=== PATIENT | female | born 1980 | race Caucasian/White ===

== ENCOUNTER 2016-07-15 18:24 | Emergency (ER) | payer OTHER ==
[2016-07-15] MEDS ORDERED: MORPHINE SULFATE 8 MG/ML INJ ONE (18:31)
[2016-07-15] MEDS ORDERED: ONDANSETRON HCL 4 MG/2 ML VIAL ONE (18:32)
[2016-07-15] MEDS ORDERED: PROPOFOL 200 MG/20 ML AMP ONE (18:34)
[2016-07-15 18:52] LABS: AUTOMATED NEUTROPHIL # 6.1 TH/MM3 (1.8-7.7); BASOPHIL # 0.1 TH/MM3 (0-0.2); BASOPHIL % 0.6 % (0.0-2.0); EOSINOPHIL # 0.2 TH/MM3 (0-0.4); HEMATOCRIT 37.2 % (35.0-46.0); HEMO FLAGS DIFF FINAL; LYMPH % 36.1 % (9.0-44.0); LYMPHOCYTE # 3.9 TH/MM3 (1.0-4.8); MEAN CELL VOLUME 77.4 FL (80.0-100.0); MEAN CORPUSCULAR HEMOGLOBIN 25.7 PG (27.0-34.0); MEAN CORPUSCULAR HGB CONC 33.2 % (32.0-36.0); MONO % 4.9 % (0.0-8.0); NEUT % 56.4 % (16.0-70.0); PLATELET COUNT 393 TH/MM3 (150-450); RED BLOOD COUNT 4.81 MIL/MM3 (4.00-5.30); RED CELL DISTRIBUTION WIDTH 14.5 % (11.6-17.2); WHITE BLOOD COUNT 10.7 TH/MM3 (4.0-11.0)
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
[2016-07-15 19:00] VITALS: BP 136/77; PULSE 107; RESP 16; O2SAT 100
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
[2016-07-15 19:02] LABS: APTT (PATIENT) 23.3 SEC (24.3-30.1); PROTHROMBIN TIME - PATIENT 10.6 SEC (9.8-11.6)
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
[2016-07-15] MEDS: TETANUS/DIPHTHERIA TOXOID ADULT 0.5 ML VIAL IM ONE ×2 (19:15→19:20)
[2016-07-15 19:30] VITALS: O2SAT 97
[2016-07-15 21:00] VITALS: BP 127/70; PULSE 98; RESP 17; O2SAT 100
--- NOTE | 2016-07-15 21:12 | PD ---
Data Data Last Documented VS Vital Signs Date Time Temp Pulse Resp B/P Pulse Ox O2 Delivery O2 Flow Rate FiO2 07/15/16 23:00 91 15 122/68 100 Room Air Orders Morphine Inj (Morphine Inj) (07/15/16 18:31) Ondansetron Inj (Zofran Inj) (07/15/16 18:32) I-Stat Profile (07/15/16 18:28) I-Stat Creatinine (07/15/16 18:28) Complete Blood Count With Diff (07/15/16 18:28) Prothrombin Time / Inr (Pt) (07/15/16 18:28) Act Partial Throm Time (Ptt) (07/15/16 18:28) Type And Screen (07/15/16 18:28) Chest, Single Ap (07/15/16 18:28) Pelvis, Ap Only (Routine) (07/15/16 18:28) Ct Brain W/O Iv Contrast(Rout) (07/15/16 18:28) Ct Cerv Spine W/O Contrast (07/15/16 18:28) Iv Access Insert/Monitor (07/15/16 18:28) Ecg Monitoring (07/15/16 18:28) Oximetry (07/15/16 18:28) Oxygen Administration (07/15/16 18:28) Propofol 200 Mg/20 Ml Inj (Diprivan 200 (07/15/16 18:34) Alcohol (Ethanol) (07/15/16 18:28) Pelvis, Ap Only (Routine) (07/15/16 ) Immobilizer Knee 20 Inch (07/15/16 ) Tetanus/Diphtheria Tox Adult (Tetanus/Di (07/15/16 19:15) Ct Abd/Pel W Iv Contrast(Rout) (07/15/16 21:10) Iohexol 350 Inj (Omnipaque 350 Inj) (07/15/16 23:04) Acetamin-Hydrocod 325-5 Mg ([place] 5-325 (07/16/16 00:00) Labs Laboratory Tests Test 07/15/16 18:28 White Blood Count 10.7 TH/MM3 Red Blood Count 4.81 MIL/MM3 Hemoglobin 12.3 GM/DL Bedside Hemoglobin 13.6 G/DL Hematocrit 37.2 % Bedside Hematocrit 40.0 % Mean Corpuscular Volume 77.4 FL Mean Corpuscular Hemoglobin 25.7 PG Mean Corpuscular Hemoglobin 33.2 % Concent Red Cell Distribution Width 14.5 % Platelet Count 393 TH/MM3 Mean Platelet Volume 8.1 FL Neutrophils (%) (Auto) 56.4 % Lymphocytes (%) (Auto) 36.1 % Monocytes (%) (Auto) 4.9 % Eosinophils (%) (Auto) 2.0 % Basophils (%) (Auto) 0.6 % Neutrophils # (Auto) 6.1 TH/MM3 Lymphocytes # (Auto) 3.9 TH/MM3 Monocytes # (Auto) 0.5 TH/MM3 Eosinophils # (Auto) 0.2 TH/MM3 Basophils # (Auto) 0.1 TH/MM3 CBC Comment DIFF FINAL Differential Comment Prothrombin Time 10.6 SEC Prothromb Time International 1.0 RATIO Ratio Activated Partial 23.3 SEC Thromboplast Time Bedside Sodium 142 MMOL/L Bedside Potassium 4.0 MMOL/L Bedside Chloride 108 MMOL/L Bedside Blood Urea Nitrogen 6 MG/DL Bedside Creatinine 0.7 MG/DL Bedside Glucose 124 MG/DL Ethyl Alcohol Level 253 MG/DL Blood Type A POSITIVE Antibody Screen NEGATIVE [facility] Medical Record Reviewed: Yes Supervised Visit with MIKA: No Interpretation(s) Last Impressions Abdomen/Pelvis CT 07/15/162109 Signed Impressions: Service Date/Time: Friday, July 15, 2016 23:03 - CONCLUSION: 1. Tiny avulsion fracture left lateral acetabulum near the acetabular labrum. 2. Fatty liver and left ovarian cyst. Edyta Ahn MD Pelvis X-Ray 07/15/161827 Signed Impressions: Service Date/Time: Friday, July 15, 2016 18:18 - CONCLUSION: Interim reduction of the left hip dislocation. Small fracture fragment off of the lateral margin of the acetabulum. Leoncio Monreal MD Head CT 07/15/161827 Signed Impressions: Service Date/Time: Friday, July 15, 2016 18:50 - CONCLUSION: No bleed or other acute intracranial abnormality demonstrated. Partly opacified paranasal sinuses and potentially a fractured nose. Please correlate clinically. Leoncio Monreal MD Chest X-Ray 07/15/161827 Signed Impressions: Service Date/Time: Friday, July 15, 2016 18:18 - CONCLUSION: One view trauma chest x-ray within normal limits. Leoncio Monreal MD Cervical Spine CT 07/15/16 1828 Signed Impressions: Service Date/Time: Friday, July 15, 2016 18:50 - CONCLUSION: No fracture or subluxation of the cervical spine. Subcentimeter benign-appearing lucency of the C4 vertebral body incidentally noted. Leoncio Monreal MD Pelvis X-Ray 07/15/16 0000 Signed Impressions: Service Date/Time: Friday, July 15, 2016 18:18 - CONCLUSION: Acute dislocation of the left hip. Leoncio Monreal MD Narrative Course During the course of the patients emergency department visit, the patients history, examination, and differential diagnosis were reviewed with the patient. The patient had IV access obtained and blood work sent for analysis. The patient was placed on a quality assurance monitor chassis with oximetry and blood pressure monitoring. The patient initially came in as a trauma alert was evaluated by the trauma surgeon and Dr. Carbajal. The patient's case was checked out to me at the conclusion of Dr. Carbajal shift. The patient was initially provided morphine for pain, Zofran for nausea. The patient was given propofol for sedation for relocation of her hip, tetanus was updated. The patients laboratory studies were reviewed and remarkable for a white count 10.7, hemoglobin 12.3, platelets 393 with a normal differential. I-STAT is unremarkable, PT 10.6, INR 1.0, PTT 23.3, alcohol level is 253. Radiology studies were reviewed and remarkable a CT scan of the brain that is unremarkable, CT scan of the C-spine shows no acute abnormality. CT scan of the abdomen and pelvis reveals a tiny evulsion fracture off of the acetabulum at the labrum noted. Initial pelvic x-ray on arrival reveals a left hip dislocation. A post reduction pelvis x-ray reveals an interim reduction of the left hip dislocation with a small fracture fragment off of the lateral margin of the acetabulum. A call was placed out to the orthopedic physician on-call, Dr. Daniel. I spoke to him at approximately 11:50 PM. He agreed that the patient could follow-up with him as an outpatient. He recommended that the patient be instructed regarding hip precautions to avoid dislocation. The patient will be discharged home with a knee immobilizer in place. The patient has been up walking around to go to the bathroom repeatedly during her emergency department observation. The patient has a ride home available. The patient will be discharged home with a prescription for Lortab. The patient is resting comfortably and feels better, is alert and in no distress. The patients results and examination findings were discussed with the patient. The repeat examination is unremarkable and benign. The history, exam, diagnostic testing, and current condition do not suggest any significant pathology to warrant further testing, continued ED treatment, admission, or surgical evaluation at this point. The vital signs have been stable. The patient does not have uncontrollable pain, intractable vomiting, or other significant symptoms. The patient's condition is stable and appropriate for discharge. The patient will pursue further outpatient evaluation with a primary care physician or other designated or consulting physician as indicated in the discharge instructions. The patient expressed understanding and was agreeable with this plan. Diagnosis Primary Impression: Hip dislocation, left Qualified Code: S73.005A - Hip dislocation, left, initial encounter Additional Impressions: Alcohol intoxication Qualified Code: F10.920 - Alcohol intoxication, uncomplicated Facial abrasion Qualified Code: S00.81XA - Facial abrasion, initial encounter Nose fracture Qualified Code: S02.2XXA - Closed fracture of nasal bone, initial encounter Referrals: Luis Daniel MD 2 days Primary Care Physician 3 days Patient Instructions: General Instructions, Hip Dislocation (ED), Nasal Fracture (ED) Additional Instruction: Avoid flexing her knee as this can cause recurrent dislocation of the hip. Med/Other Pt SpecificInfo: Prescription(s) given Scripts Hydrocodone-Acetaminophen (Lortab)5-325 Mg Tab1 Tab PO Q6H PRN (PAIN) #12 TAB Ref 0 Prov:Nava Mereidth MD 07/15/16 Disposition: 01 DISCHARGE HOME Condition: Stable Nava Meredith MD July 15, 2016 21:12
[2016-07-15 23:00] VITALS: BP 122/68; PULSE 91; RESP 15; O2SAT 100
[2016-07-15] MEDS ORDERED: IOHEXOL 350 MG/ML 10 ML VIAL (for RAD DIAG) IV ONE (23:04)
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
[2016-07-15] MEDS ORDERED: HYDR-3533 PO (23:59)
[2016-07-16] MEDS ORDERED: ACETAMINOPHEN/HYDROcodone 325 MG/5 MG TAB PO ONE
== END 2016-07-16 00:33 | disposition home or self-care (01) ==
LOC: NEPI 18:24 → EDBD 18:24 → NEPE 07-16 00:33
DX: S73.015A Posterior dislocation of left hip, initial encounter (principal); S00.81XA Abrasion of other part of head, initial encounter; S02.2XXA Fracture of nasal bones, initial encounter for closed fracture; S32.492A Other specified fracture of left acetabulum, initial encounter for closed fracture; F10.129 Alcohol abuse with intoxication, unspecified; V47.5XXA Car driver injured in collision with fixed or stationary object in traffic accident, initial encounter; Y93.89 Activity, other specified; Y92.410 Unspecified street and highway as the place of occurrence of the external cause; Y99.9 Unspecified external cause status; Z23 Encounter for immunization; Y90.8 Blood alcohol level of 240 mg/100 ml or more
CPT/HCPCS: 27250; 70450; 71010; 72125; 72170; 74177; 80307; 82435; 82565; 82947; 84132; 84295; 84520; 85025; 85610; 85730; 86850; 86900; 86901; 90471; 90714; 96374; 99152; 99153; 99285; 99291; J2270; J2405; L1830; Q9967; G0390